=== PATIENT | female | born 1985 | race Caucasian/White ===

== ENCOUNTER 2016-03-26 05:10 | Inpatient (IN) | payer OTHER ==
--- NOTE | 2016-03-06 14:30 | GHP ---
[f rep st] PREOP HISTORY AND PHYSICAL Amended report DATE OF PLANNED PROCEDURE: 03/26/2016. PLANNED PROCEDURE: Repeat low transverse section. INDICATIONS: The patient is a 30-year-old, 4, para 0-1-2-1, who will be 39 weeks' gestation. She has a previous history of a previous low transverse section for vasa previa at 34 weeks' gestation. The patient began tremayne at 34 weeks, and had a done at that time. This has been uncomplicated. She has received 17-OHP injections for the history of labor. khalida's primary concern for the c section is her history of rapidly metabolizing pain/numbing medication (was able to move feet by end of c section and stood up an hour after her c section, and nausea. PAST MEDICAL HISTORY: Significant for infertility, endometriosis, hypothyroidism, migraines, and a history of metabolizing pain medication very quickly. MEDICATIONS: vitamins and iron. PAST SURGICAL HISTORY: Oral surgery, wisdom teeth extraction, laparoscopy, hysterosalpingogram, egg retrieval for IVF, section. ALLERGIES: Shellfish, and kane. No known drug allergies. SOCIAL HISTORY: The patient is . She denies tobacco, alcohol, or drug use. FAMILY MEDICAL HISTORY: Noncontributory. 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 Every 28 days, lasting 4-6 days. She is a 4, para 0-1-2-1. In 04/2010, she had a spontaneous miscarriage. In 2011, she had a chemical . In 07/2013, she had a primary low transverse section at 34 weeks for vasa previa, and was conceived by IVF. Initially, the was twins, which was spontaneously reduced to a riggs. Current was conceived spontaneously, and the patient denies any history of any abnormal Pap smears or sexually transmitted diseases. PHYSICAL EXAMINATION: VITAL SIGNS: Stable. GENERAL APPEARANCE: Alert and oriented x3. HEART: Rate is regularly regular. LUNGS: Clear to auscultation bilaterally. ABDOMEN: Gravid, nondistended, nontender. EXTREMITIES: No calf tenderness or edema. PELVIC: Deferred. heart tracing is category 1. LABORATORIES: Blood type A positive. Antibody screen negative. GBS pending. HBsAg negative. HIV negative. Her 50 g glucose was 84. ASSESSMENT AND PLAN: A 30-year-old, 4, para 0-1-2-1 with a history of a previous low transverse section declines trial of labor and is electing to proceed with a repeat low transverse section. She does decline a tubal ligation. /[id number]/MODL Add acc#, 03/26/16, kodak LOERA
[2016-03-26] MEDS ORDERED: CITRIC ACID/SODIUM CITRATE 30 ML UDCUP PO ONE (05:36)
[2016-03-26] MEDS ORDERED: ceFAZolin 2 GM/DEXTROSE 100 ML IV ONE (05:36)
[2016-03-26] MEDS ORDERED: LR 500 ML IV ONE (05:36)
[2016-03-26] MEDS ORDERED: LR 1,000 ML IV SCH (06:00)
[2016-03-26 06:01] LABS: ABSOLUTE IMMATURE GRANULOCYTES 0.28 10^3/uL (0.00-0.10); ADD DIFF? NO; ADD MORPH? NO; ADD SCAN? NO; ATYPICAL LYMPHOCYTE FLAG 0 (0-99); FRAGMENT RBC FLAG 0 (0-99); HEMATOCRIT 38.1 % (38.0-47.0); HEMOGLOBIN 12.7 g/dL (12.6-16.3); LEFT SHIFT FLG 20 (0-99); LIPEMIA HEMOLYSIS FLAG 80 (0-99); MEAN CELL HEMOGLOBIN 28.7 pg (27.9-34.1); MEAN CELL HEMOGLOBIN CONCENTR. 33.3 g/dL (32.4-36.7); MEAN PLATELET VOLUME 9.8 fL (8.7-11.7); PLATELET CLUMPS FLAG 10 (0-99); PLATELET COUNT 245 10^3/uL (150-400); RED BLOOD CELL COUNT 4.43 10^6/uL (4.18-5.33); RED CELL DISTRIBUTION WIDTH 13.5 % (11.5-15.2)
[2016-03-26] MEDS ORDERED: MISOPROSTOL 200 MCG TAB ONE (06:15)
[2016-03-26] MEDS ORDERED: TERBUTALINE SULFATE 1 MG/ML VIAL ONE (06:15)
[2016-03-26] MEDS ORDERED: AMMONIA AROMATIC 1 EACH AMP IH ONE (06:15)
[2016-03-26] MEDS ORDERED: OXYTOCIN 10 UNIT/ML VIAL ONE (06:15)
[2016-03-26] MEDS ORDERED: MEPERIDINE 25 MG/ML SYR IVP PRN (07:23)
[2016-03-26] MEDS ORDERED: NALOXONE HCL 0.4 MG/ML INJ IVP PRN ×2 (07:23→09:31)
[2016-03-26] MEDS ORDERED: ONDANSETRON 4 MG/2 ML VIAL IVP PRN ×2 (07:23→17:50)
[2016-03-26] MEDS ORDERED: fentaNYL 100 MCG/2 ML INJ IVP PRN (07:23)
[2016-03-26] MEDS ORDERED: PHENYLEPHRINE HCL 100 MCG/ML SYR IVP PRN (07:23)
--- NOTE | 2016-03-26 07:23 | PREANESOB ---
Obstetric Pre-Anesthesia Info - General Info Proposed Procedure: Repeat C/S NPO Start Time: 00:00 : 3 Para: 1 - Info Status: Full Term, [place] - Labor Status PIH: No Magnesium Sulfate in Use: No Section History: Repeat Indications for Current Section: Elective/Repeat Labor Epidural: No Anesthesia Allergies/Adverse Reactions: Allergy/AdvReac Type Severity Reaction Status Date / Time shellfish derived Allergy Unknown Unknown Verified 09/25/15 15:26 kane Allergy Verified 02/28/16 21:53 Home Medications: Medication Instructions Recorded Synthroid 75 mcg (RX) 01/12/14 09/25/15 Progesterone 09/25/15 Visit Medications: Generic Name Dose Route Start Last Admin Trade Name Freq PRN Reason Stop Dose Admin Lactated Ringer's 1,000 mls @ 125 mls/hr 03/26/16 06:00 Lr IV 09/22/16 05:59 CONT JAEL Discontinued Medications Generic Name Dose Route Start Last Admin Trade Name Freq PRN Reason Stop Dose Admin Ammonia (Aromatic Spirit) Confirm 03/26/16 06:15 Ammonia Aromatic Administered 03/26/16 06:16 Dose 1 each IH .STK-MED ONE Citric Acid/Sodium Citrate 30 ml 03/26/16 05:36 03/26/16 07:10 Bicitra PO 03/26/16 05:37 30 ml ONCALL ONE Administration Ephedrine Sulfate Confirm 03/26/16 06:15 Ephedrine Sulfate Administered 03/26/16 06:16 Dose 50 mg .ROUTE .STK-MED ONE Cefazolin Sodium/Dextrose 100 mls @ 200 mls/hr 03/26/16 05:36 03/26/16 07:09 Ancef 2 Gm (Premix) IV 03/26/16 06:05 100 mls ONCALL ONE Administration Lactated Ringer's 500 mls @ 0 mls/hr 03/26/16 05:36 03/26/16 06:45 Lr IV 03/26/16 05:37 500 mls ONCE ONE Administration As Directed Misoprostol Confirm 03/26/16 06:15 Cytotec Administered 03/26/16 06:16 Dose 1,000 mcg .ROUTE .STK-MED ONE Oxytocin Confirm 03/26/16 06:15 Pitocin Administered 03/26/16 06:16 Dose 30 unit .ROUTE .STK-MED ONE Terbutaline Sulfate Confirm 03/26/16 06:15 Brethine Administered 03/26/16 06:16 Dose 1 mg .ROUTE .STK-MED ONE - Focused Exam Height/Weight (Nursing): Height 165.1 cm Weight 68.039 kg Labs: 03/26/16 05:45 Patient ABO/Rh A POSITIVE 03/26/16 05:45
[2016-03-26] MEDS ORDERED: morphINE PF 5 MG/10 ML INJ ONE (07:35)
[2016-03-26] MEDS ORDERED: fentaNYL 100 MCG/2 ML INJ ONE (07:35)
--- NOTE | 2016-03-26 07:59 | OBPROG ---
OBG Progress Note Assessment/Plan: Assessment: wrong patient Plan: 03/26/16 07:55 03/26/16 08:00 Objective: 03/26/16 05:45 Patient ABO/Rh A POSITIVE 03/26/16 05:45 ICD10 Worksheet Patient Problems: Problems Problem Status Diagnosed Delivery by section of full-term infant Acute section term delivery Acute - ICD10 Problem Qualifiers (2) Delivery by section of full-term
[2016-03-26] MEDS ORDERED: ONDANSETRON 4 MG/2 ML VIAL ONE (08:32)
[2016-03-26] MEDS ORDERED: PHENYLEPHRINE HCL 100 MCG/ML SYR ONE ×3 (08:32→09:10)
[2016-03-26] MEDS ORDERED: OXYTOCIN 100 UNITS/10 ML VIAL ONE (08:32)
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
[2016-03-26] MEDS ORDERED: PROPOFOL 200 MG/20 ML VIAL ONE (09:01)
[2016-03-26] MEDS ORDERED: MAGNESIUM HYDROXIDE 30 ML UDCUP PO PRN (09:31)
[2016-03-26] MEDS ORDERED: POLYETHYLENE GLYCOL 3350 17 GM PKT PO PRN (09:31)
[2016-03-26] MEDS ORDERED: BISACODYL 10 MG SUPP PR PRN (09:31)
[2016-03-26] MEDS ORDERED: HYDROmorphONE/DILAUDID 6 MG/30 ML PCA IV PRN (09:31)
[2016-03-26] MEDS ORDERED: DOCUSATE SODIUM 100 MG CAP PO PRN (09:31)
[2016-03-26] MEDS ORDERED: LACTULOSE 20 GM/30 ML UDCUP PO PRN (09:31)
[2016-03-26] MEDS ORDERED: ACETAMINOPHEN 325 MG TAB PO PRN (09:31)
[2016-03-26] MEDS ORDERED: SIMETHICONE 80 MG TAB CHEW PO PRN (09:31)
--- NOTE | 2016-03-26 09:44 | OBPROC ---
- Delivery Pre-op Diagnoses: IUP 39 2/7 weeks, hx prior section, declines trial of labor, endometriosis Post-op Diagnoses: same plus face presentation Procedure: Repeat, Low Transverse, Other (Specify) (plus vaccum assist to get baby our) Surgeon: Asha Gupta Trial Lawyer: Roseanna Hendricks Anesthesiologist: Chalo Stewart Anesthesia: Spinal Complications: None Findings: defect in peritoneum and rectus muscle noted on entering the abdomen. left ovary and tube adherent to posterior wall of the uterus Specimen(s)/Path: Placenta EBL: 800 - Info Infant A Delivery Date: 03/26/16 Delivery Time: 08:28 Sex of : Female Score (1 Min): 2 Score (5 Min): 8 Score (10 Min): 9
--- NOTE | 2016-03-26 09:46 | POSTANESTH ---
Post Anesthetic Evaluation Cardiovascular Status: Normal, Stable, Similar to Pre-Op Cond Respiratory Status: Normal, Stable, Similar to Pre-op Cond. Level of Consciousness/Mental Status: Can Participate in Eval, Alert and Oriented Pain Control: Adequate, Prn Tx Ordered Nausea/Vomiting Control: Adequate, Prn Tx Ordered Complications Possibly Related to Anesthesia: None Noted
--- NOTE | 2016-03-26 10:24 | GOP ---
[f rep st] OPERATIVE REPORT DATE OF OPERATION: 03/26/2016 SURGEON: Asha Gupta DO REHANGER: Roseanna Hendricks CNM ANESTHESIA: Spinal. ANESTHESIOLOGIST: Chalo Stewart MD PREOPERATIVE DIAGNOSIS: 1. Intrauterine at 39 and 2/7 weeks gestation. 2. History of previous low transverse section. Declines trial of labor. 3. Endometriosis. POSTOPERATIVE DIAGNOSIS: 1. Intrauterine at 39 and 2/7 weeks gestation. 2. History of previous low transverse section. Declines trial of labor. 3. Baby in the face presentation. 4. Endometriosis. PROCEDURE PERFORMED: FINDINGS: 1. Viable 7 pound, 2 ounce female infant in the cephalic face presentation delivered at 8:28 a.m. 2. Intact placenta with 3-vessel cord. 3. Normal uterus, normal right ovary and tube. Left ovary and tube adherent to the posterior wall of the uterus. ESTIMATED BLOOD LOSS: 800 cc. INDICATIONS: The patient is a 31-year-old, 3, para 0-1-1-1, who was 39 and 2/7 weeks gestation. She has a history of previous low transverse section for vasa previa at 34 weeks. The patient does have a history of infertility secondary to endometriosis. Conceived this spontaneously. The patient declines trial of labor and plans for repeat low transverse section. She declines tubal ligation. Risks and benefits of the procedure were reviewed with the patient, and the patient was properly consented. DESCRIPTION OF PROCEDURE: Patient was taken to the operating room with intravenous fluids in place. She was then seated on the operating room table where spinal anesthesia was obtained. She was then repositioned into the dorsal supine position, and Venodynes were placed on her lower extremities. She was then prepped and draped in the normal sterile fashion. She had received the 2 g of Ancef preoperatively. A Ruiz catheter was then placed. Anesthesia was assessed and found to be adequate. A Pfannenstiel skin incision was then made 2 fingerbreadths above the pubic symphysis along the previous section scar. The incision was then carried through the underlying layer of fascia with the Bovie. The fascia was then nicked in the midline, and a fascial incision was extended laterally. The superior aspect of the fascial incision was then grasped with the Lizz's, tented up, and the underlying rectus muscle dissected off bluntly with the Bovie. Attention was then turned to the inferior aspect of the fascial incision , which in a similar fashion, was grasped with Lizz's, tented up, and the underlying rectus muscle dissected off bluntly with the Bovie. The rectus muscle was noted already to be with a defect in the rectus muscle and the peritoneum, leading directly to the uterus. A finger was then inserted to palpate for any adhesions. None were noted. The peritoneum and rectus muscle were then dissected superiorly and inferiorly. The bladder blade was then inserted. The vesicouterine peritoneum was identified, tented up, and entered sharply with the Metzenbaum scissors. The incision was extended laterally, and a bladder flap was created digitally. The bladder blade was then reinserted. The uterus was then incised in a low transverse fashion with a scalpel. The uterine incision was extended laterally. Membranes were artificially ruptured. A large amount of clear fluid was noted. The infant was noted to be in a somewhat face presentation and not engaged within the pelvis. The head was flexed, and because the head was not well engaged within the pelvis, a vacuum was applied to the 's head, and the infant was then delivered through the incision in the occiput posterior presentation. Cord was clamped x2 and cut. Cord blood and cord gases were obtained. The infant was handed off to awaiting nurse practitioner. Intact placenta with 3-vessel cord delivered without difficulty. Attempt to exteriorize the uterus was performed; however, the uterus was noted to be very firm, so it was left in place. The bladder blade was then reinserted. The uterus was cleared of all clots and debris, and an 0 Vicryl stitch was used to close the hysterotomy. A 2nd 0 Vicryl stitch was used to imbricate the uterine incision. One additional 0 Vicryl stitch was used to assist in bleeding in the lower uterine segment. Hemostasis was assured. The left round ligament was then grasped, and the uterus was rotated sideways. The left fallopian tube and ovary were adherent to the posterior wall of the uterus , but otherwise looked unremarkable. The same was performed on the right side, and the right ovary and tube were unremarkable. The hysterotomy remained hemostatic. Peritoneum was reapproximated with 3-0 Vicryl in a running fashion. An attempt was made to reapproximate the rectus muscle; however, patient was vomiting at the time and fear for tension on the rectus muscle caused me to not perform this portion of the surgery. The fascia was then closed with 0 Vicryl in a running fashion. Hemostasis was assured. Subcutaneous tissue was unremarkable and hemostatic. Subcuticular tissue was closed with 3-0 Vicryl in a running subcuticular fashion. Sponge, lap and needle counts were correct x2. Patient was transported to recovery room in stable condition. /[id number]/MODL MTDD
[2016-03-26] MEDS: KETOROLAC 30 MG/1 ML SDV IVP SCH ×3 (10:50→23:16)
[2016-03-26] MEDS: SENNOSIDES/DOCUSATE SODIUM TAB PO SCH (23:17)
[2016-03-27] MEDS: KETOROLAC 30 MG/1 ML SDV IVP SCH (05:28)
[2016-03-27] MEDS: HYDROCODONE/APAP 5/325 TAB PO PRN ×4 (08:42→21:32)
[2016-03-27] MEDS: SENNOSIDES/DOCUSATE SODIUM TAB PO SCH ×2 (08:42→20:02)
--- NOTE | 2016-03-27 11:12 | SOAPPROG ---
SOAP Progress Note Assessment/Plan: Assessment: POD 1 s/p RCS anemia Plan: Routine care, iron BID 03/27/16 11:12 Subjective: Pt doing ok. Pain managed well with Toradol but started [place] this am. Will do stool softeners also. Just got henderson out and hasn't voided. Baby has BF and nipples are sore. BF first baby 2 yrs. Bld is light. Pt has amb without probs. reg diet Objective: Vital Signs Temp Pulse Resp BP Pulse Ox 37.1 C 108 H 18 113/70 94 03/27/16 09:37 03/27/16 09:37 03/27/16 09:37 03/27/16 09:37 03/27/16 09:37 Laboratory Results 03/27/16 05:45 03/26/16 03/27/16 03/28/16 05:59 05:59 05:59 Intake Total 6320 1750 Output Total 2400 1125 Balance 3920 625 Physical Exam - Physical Exam General Appearance: WD/WN Abdomen: non-tender (approp post op tenderness), soft, other (bandage CDI, FF at umb) Pelvic Exam: vaginal bleeding (normal lochia) Extremities: non-tender, pedal edema (mild) Neuro/Psych: normal mood/affect ICD10 Worksheet Patient Problems: Problems Problem Status Diagnosed section term delivery Acute
[2016-03-27] MEDS: IRON POLYSAC/IRON HEME 28 MG TAB PO SCH ×2 (13:21→20:02)
[2016-03-27] MEDS: IBUPROFEN 600 MG TAB PO SCH ×2 (14:00→20:02)
[2016-03-28] MEDS: IBUPROFEN 600 MG TAB PO SCH ×4 (01:44→19:41)
[2016-03-28] MEDS: HYDROCODONE/APAP 5/325 TAB PO PRN ×6 (01:44→22:27)
[2016-03-28] MEDS ORDERED: LEVOTHYROXINE 150 MCG TAB PO SCH (06:00)
[2016-03-28] MEDS: IRON POLYSAC/IRON HEME 28 MG TAB PO SCH ×2 (08:13→09:37)
[2016-03-28] MEDS: SENNOSIDES/DOCUSATE SODIUM TAB PO SCH ×2 (08:13→23:37)
--- NOTE | 2016-03-28 09:48 | OBPROG ---
OBG Progress Note Assessment/Plan: Assessment: 31 y/o POD #2 s/p Rpt LTCS doing well. Plan: D/c home today with Rx Ibuprofen, [place], Bifera and Colace. Return to office Saturday for an incision check and reviewed activity precautions. Follow-up 2 and 6 weeks. 03/28/16 09:49 Subjective: Pt is doing well today. She has good pain control with po meds. No n/v, khanh reg diet and nursing is going well. She is ambulating and voiding and has min lochia. She has a sm BM yesterday and is taking Senna and feeling good. She feels ready to d/c home today with good family support. Objective: 03/27/16 05:45 Patient ABO/Rh A POSITIVE 03/26/16 05:45 Temp Pulse Resp BP Pulse Ox 36.6 C 105 H 18 129/86 H 95 03/28/16 08:40 03/28/16 08:40 03/28/16 08:40 03/28/16 08:40 03/28/16 08:40 Uterine Position/Fundal Height: Umbilicus -2 Uterine Tone: Firm - Physical Exam General Appearance: WD/WN, alert, no apparent distress Neck: non-tender, full range of motion, supple Respiratory: chest non-tender, lungs clear, normal breath sounds Cardiac/Chest: regular rate, rhythm Abdomen: normal bowel sounds, incision (c/d/i but slight erythema superior to her incision marked with pen) Extremities: swelling (ni), Jerel's sign (neg) ICD10 Worksheet Patient Problems: Problems Problem Status Diagnosed section term delivery Acute
[2016-03-28 17:12] LABS: % IMMATURE GRANULYOCYTES 2.1 % (0.0-1.1); ABSOLUTE IMMATURE GRANULOCYTES 0.27 10^3/uL (0.00-0.10); ADD DIFF? NO; ADD MORPH? NO; ADD SCAN? NO; ATYPICAL LYMPHOCYTE FLAG 0 (0-99); FRAGMENT RBC FLAG 0 (0-99); HEMATOCRIT 29.9 % (38.0-47.0); HEMOGLOBIN 9.7 g/dL (12.6-16.3); LEFT SHIFT FLG 20 (0-99); LIPEMIA HEMOLYSIS FLAG 80 (0-99); MEAN CELL HEMOGLOBIN 28.7 pg (27.9-34.1); MEAN CELL HEMOGLOBIN CONCENTR. 32.4 g/dL (32.4-36.7); MEAN CELL VOLUME 88.5 fL (81.5-99.8); MEAN PLATELET VOLUME 9.4 fL (8.7-11.7); PLATELET CLUMPS FLAG 10 (0-99); PLATELET COUNT 207 10^3/uL (150-400); RED BLOOD CELL COUNT 3.38 10^6/uL (4.18-5.33); RED CELL DISTRIBUTION WIDTH 13.7 % (11.5-15.2)
[2016-03-28 17:30] LABS: ALANINE AMINOTRANSFERASE 33 IU/L (9-52); ASPARTATE AMINOTRANSFERASE 24 IU/L (14-46); BILIRUBIN,TOTAL 0.2 mg/dL (0.1-1.4); BILIRUBIN-CONJUGATED 0.1 mg/dL (0.0-0.5); BILIRUBIN-UNCONJUGATED 0.1 mg/dL (0.0-1.1); CREATININE 0.6 mg/dL (0.6-1.0); GLOMERULAR FILTRATION RATE > 60; LACTATE DEHYDROGENASE 444 IU/L (313-618); URIC ACID 3.8 mg/dL (2.5-6.8)
--- NOTE | 2016-03-28 17:58 | SOAPPROG ---
SOAP Progress Note Assessment/Plan: Assessment: p2 pod# 2 s/p RLTCS abdominal cellulitis breast feeding Plan: routine post operative care augmentin 03/28/16 17:56 Subjective: patient is overall doing well. erythema above incision on abdomen noted. patient was hoping to go home and is tearful. discussed plan to start antibiotics as erythema has increased in size. patient agreeable. Objective: Vital Signs Temp Pulse Resp BP Pulse Ox 36.6 C 109 H 16 133/85 H 94 03/28/16 16:15 03/28/16 16:15 03/28/16 16:15 03/28/16 16:15 03/28/16 16:15 Laboratory Results 03/28/16 17:00 03/28/16 17:00 03/27/16 03/28/16 03/29/16 05:59 05:59 05:59 Intake Total 6320 2250 Output Total 2400 1605 Balance 3920 645 Physical Exam - Physical Exam General Appearance: WD/WN, alert, no apparent distress Respiratory: chest non-tender, lungs clear, normal breath sounds Cardiac/Chest: normal peripheral pulses, regular rate, rhythm Abdomen: normal bowel sounds, non-tender, soft Skin: normal color, warm/dry, other (errythema on abdomen) Extremities: normal range of motion, non-tender, normal inspection, normal capillary refill Neuro/Psych: no motor/sensory deficits, alert, normal mood/affect, oriented x 3 ICD10 Worksheet Patient Problems: Problems Problem Status Diagnosed section term delivery Acute
[2016-03-28] MEDS: AMOXICILLIN/CLAVULANATE POT 875/125 MG TAB PO SCH ×2 (18:42→22:25)
[2016-03-29] MEDS: HYDROCODONE/APAP 5/325 TAB PO PRN ×4 (01:48→14:11)
[2016-03-29] MEDS: IBUPROFEN 600 MG TAB PO SCH ×3 (01:49→14:11)
[2016-03-29 01:58] VITALS: O2SAT 94
[2016-03-29] MEDS ORDERED: LEVOTHYROXINE 75 MCG TAB PO SCH (06:00)
--- NOTE | 2016-03-29 08:10 | SOAPPROG ---
SOAP Progress Note Assessment/Plan: Assessment: p2 pod# 3 s/p RLTCS abdominal cellulitis - improving on augmentin breast feeding anemia Plan: routine post operative care augmentin iron discharge instructions 03/29/16 08:08 Subjective: patient is doing well. better than last night. bps stable. is less swollen. abdomen is less errythematous. breast feeding is going well. requesting apno and abdominal binder. passing gas. voiding without difficulty. denies headache and changes in vision. ready to go home Objective: Vital Signs Temp Pulse Resp BP Pulse Ox 36.3 C 88 18 121/83 H 94 03/29/16 01:57 03/29/16 01:57 03/29/16 01:57 03/29/16 01:57 03/29/16 01:57 Laboratory Results 03/28/16 17:00 03/28/16 17:00 03/28/16 03/29/16 03/30/16 05:59 05:59 05:59 Intake Total 2250 Output Total 1605 Balance 645 Physical Exam - Physical Exam General Appearance: WD/WN, alert, no apparent distress Respiratory: chest non-tender, lungs clear, normal breath sounds Cardiac/Chest: normal peripheral pulses, regular rate, rhythm Abdomen: normal bowel sounds, non-tender, soft, other (fundur firm and non tender) Skin: normal color, warm/dry, other (incision clean dry and intact. abdominal erythema improved ) Extremities: normal range of motion, non-tender, normal inspection, normal capillary refill Neuro/Psych: no motor/sensory deficits, alert, normal mood/affect, oriented x 3 ICD10 Worksheet Patient Problems: Problems Problem Status Diagnosed section term delivery Acute
[2016-03-29] MEDS: AMOXICILLIN/CLAVULANATE POT 875/125 MG TAB PO SCH (08:23)
[2016-03-29 09:18] VITALS: BP 123/87; PULSE 98; RESP 16; TEMP 99
[2016-03-29] MEDS: SENNOSIDES/DOCUSATE SODIUM TAB PO SCH (09:56)
[2016-03-29] MEDS: IRON POLYSAC/IRON HEME 28 MG TAB PO SCH (10:20)
== END 2016-03-29 15:10 | disposition home or self-care (01) | DRG 766 ==
LOC: FLD 05:10 → FOB 11:44
PROVIDERS: ADMIT Obstetrics & Gynecology; ATTEND Obstetrics & Gynecology
PROC: 10D00Z1 Extraction of Products of Conception, Low, Open Approach (ICD-10-PCS; principal; 2016-03-26)
DX: O34.211 Maternal care for low transverse scar from previous cesarean delivery (principal); O32.3XX0 Maternal care for face, brow and chin presentation, not applicable or unspecified; O86.0 Infection of obstetric surgical wound; O99.89 Other specified diseases and conditions complicating pregnancy, childbirth and the puerperium; N80.3 Endometriosis of pelvic peritoneum; Z3A.39 39 weeks gestation of pregnancy; Z37.0 Single live birth
CPT/HCPCS: J0690; J1170; J1885; J2274; J2370; J2405; J2590; J2704; J3010; J3105

== ENCOUNTER → 2017-11-26 | Outpatient (CLI) | payer OTHER | LOC: FIMAGING 12:51 | PROVIDERS: ATTEND Obstetrics & Gynecology | DX: O09.292 Supervision of pregnancy with other poor reproductive or obstetric history, second trimester (principal); Z3A.19 19 weeks gestation of pregnancy ==

== ENCOUNTER 2018-04-11 05:40 | Inpatient (IN) | payer OTHER ==
--- NOTE | 2018-04-04 09:29 | GHP ---
DATE OF ADMISSION: 04/11/2018 PLANNED PROCEDURE: Repeat section. INDICATIONS: Patient is a 33-year-old, 4, para 2-0-1-2, who will be 39 weeks gestation. She has a history of previous low transverse section x2 and plans a repeat section. S he is 95% sure her family status is complete, but not 100%, so she will not have a bilateral salpinge ctomy. Her will have a vasectomy at the time that they are done. The patient's estimated da te of confinement is 04/18/2018, dated by an uncertain last menstrual period, consistent with a 7-wee k ultrasound. The patient initiated care with [facility] in the 1st trimester. H er was complicated by previa at 12 weeks, which resolved by her 20-week ultrasound. She erazo s a single umbilical artery and a choroid plexus cyst. Normal anti-PT was done. She declined amnio. She had serial growth ultrasounds in , which showed appropriate growth. MEDICAL HISTORY: Significant for anxiety, which is stable on Zoloft. History of depressi on. Hypothyroidism. History of infertility. History of migraine headaches. MEDICATIONS: Synthroid 75 mcg 6 days a week, 150 mcg 1 day a week; vitamins; Zoloft 50 mg. SURGICAL HISTORY: section x2. [place] teeth extraction. History of salpingogram. 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 ALLERGIES: Shellfish and Kyleigh. No known drug allergies. SOCIAL HISTORY: Patient is . She lives with her and their 2 daughters. She denies t obacco, alcohol, or drug use. FAMILY MEDICAL HISTORY: Noncontributory. 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 Periods have been overall regular. She is a 5, para 1-1-2 -2. In 2010, she had a chemical . In 2011, she had a spontaneous after IVF in 2013. She had a primary low transverse section at 34 weeks gestation for vasa previa. Dmitriy alberts was initially a twin and had a spontaneous demise at 9 weeks. This was conceived by IVF. She went into labor at 34 weeks and had an emergency for the vasa previa of a 5 pounds female . In 2016, she had a repeat section, placenta previa at 39 weeks ges tation of a 7 pounds 2 ounce female infant. Current has been uncomplicated with the except ion of the growth ultrasounds for single umbilical artery. The patient denies any history of any abn ormal Pap smears or sexually transmitted diseases. REVIEW OF SYSTEMS: A 10-point review of systems is negative. Positive movement. No loss of f luid. No vaginal bleeding. She denies any headache or changes in vision. PHYSICAL EXAMINATION: VITAL SIGNS: Stable. GENERAL APPEARANCE: Alert and oriented x3. HEART: Ra te is regular. LUNGS: Clear to auscultation bilaterally. ABDOMEN: Gravid, nondistended, nontender . EXTREMITIES: Reveal no calf tenderness or edema. PELVIC: Cervical exam was declined. LABS: Blood type A positive. Antibody screen negative. Rubella immune. GBS positive. HB sAg negative. HIV negative. Her 50 g glucose was 112. ASSESSMENT AND PLAN: A 33-year-old, 5, para 1-1-2-2, who will be 39 weeks gestation for a sc heduled repeat section. She declines tubal ligation. Thank you indication. /[id number]/MODL
[2018-04-11] MEDS ORDERED: LR 1,000 ML IV SCH (06:33)
[2018-04-11 06:56] LABS: PLATELET COUNT 207 10^3/uL (150-400)
[2018-04-11] MEDS ORDERED: ceFAZolin 2 GM/DEXTROSE 100 ML IV ONE (07:26)
[2018-04-11] MEDS ORDERED: PROPOFOL 200 MG/20 ML VIAL ONE (07:27)
[2018-04-11] MEDS ORDERED: morphINE PF 5 MG/10 ML INJ ONE (07:27)
[2018-04-11] MEDS ORDERED: BUPIVACAINE/DEXTROSE 7.5MG/ML 2 ML SPINAL AMP SP ONE (07:32)
[2018-04-11] MEDS ORDERED: ONDANSETRON 4 MG/2 ML VIAL ONE (07:34)
[2018-04-11] MEDS ORDERED: DEXAMETHASONE 4 MG/ML VIAL ONE (07:34)
[2018-04-11] MEDS ORDERED: METOCLOPRAMIDE 10 MG/2 ML VIAL ONE (07:35)
[2018-04-11] MEDS ORDERED: PHENYLEPHRINE HCL 100 MCG/ML SYR IVP PRN (07:39)
[2018-04-11] MEDS ORDERED: OXYCODONE/APAP 5/325 TAB PO PRN (07:39)
[2018-04-11] MEDS ORDERED: NALOXONE HCL 0.4 MG/ML INJ IVP PRN ×2 (07:39)
[2018-04-11] MEDS ORDERED: HYDROmorphONE/DILAUDID 1 MG/ML INJ IVP PRN (07:39)
[2018-04-11] MEDS ORDERED: ONDANSETRON 4 MG/2 ML VIAL IVP PRN ×2 (07:39)
[2018-04-11] MEDS ORDERED: fentaNYL 100 MCG/2 ML INJ IVP PRN (07:39)
--- NOTE | 2018-04-11 07:44 | PREANESOB ---
Obstetric Pre-Anesthesia Info - General Info Proposed Procedure: Repeat NPO Start Time: 08:00 : 4 Para: 2 NANCY: 04/18/18 Gestational Age: 39 week(s) and 0 day(s) - Info Status: Full Term - Labor Status Section History: Repeat Labor Epidural: No Anesthesia Allergies/Adverse Reactions: Allergy/AdvReac Type Severity Reaction Status Date / Time kane Allergy Intermediate Verified 04/11/18 06:38 shellfish derived Allergy Unknown Unknown Verified 04/11/18 06:38 Home Medications: Medication Instructions Recorded Synthroid 75 mcg (RX) 01/12/14 09/25/15 Progesterone 09/25/15 Hydrocodone/APAP 5/325 [Charmco 1 - 2 tab PO Q4HRS PRN #20 tab 03/28/16 5/325 (*)] Ibuprofen [Motrin (*)] 600 mg PO Q6H #30 tab 03/28/16 Iron Polysacch/Iron Heme Polyp 28 mg PO BID #60 tab 03/28/16 [Bifera] Amoxicillin/Clavulanate Pot 875 mg PO BID #14 tab 03/29/16 [Augmentin 875 MG TAB (*)] Visit Medications: Generic Name Dose Route Start Last Admin Trade Name Freq PRN Reason Stop Dose Admin Lactated Ringer's 1,000 mls @ 125 mls/hr 04/11/18 06:33 Lr IV 10/08/18 06:32 CONT JAEL Cefazolin Sodium/Dextrose 100 mls @ 200 mls/hr 04/11/18 07:26 Ancef IV 04/11/18 07:55 ONCE ONE Protocol Discontinued Medications Generic Name Dose Route Start Last Admin Trade Name Freq PRN Reason Stop Dose Admin Bupivacaine HCl/Dextrose Confirm 04/11/18 07:32 Marcaine Spinal Administered 04/11/18 07:33 Dose 2 ml SP .STK-MED ONE Dexamethasone Confirm 04/11/18 07:34 Decadron Injection Administered 04/11/18 07:35 Dose 4 mg .ROUTE .STK-MED ONE Metoclopramide HCl Confirm 04/11/18 07:35 Reglan Injection Administered 04/11/18 07:36 Dose 10 mg .ROUTE .STK-MED ONE Morphine Sulfate Confirm 04/11/18 07:27 Morphine Pf 5 Mg/10 Ml Administered 04/11/18 07:28 Dose 5 mg .ROUTE .STK-MED ONE Ondansetron HCl Confirm 04/11/18 07:34 Zofran Administered 04/11/18 07:35 Dose 4 mg .ROUTE .STK-MED ONE Propofol Confirm 04/11/18 07:27 Diprivan Administered 04/11/18 07:28 Dose 200 mg .ROUTE .STK-MED ONE - Vital Signs Latest Vital Signs (Nursing): Temp Pulse Resp BP Pulse Ox 36.8 C 90 16 128/88 H 95 04/11/18 06:27 04/11/18 06:27 04/11/18 06:27 04/11/18 06:27 04/11/18 06:27 Height/Weight (Nursing): Height 154.94 cm Weight 81.647 kg - Focused Exam Neck exam: FROM Mallampati Score: Class 2 Mouth exam: normal dental/mouth exam Pulmonary: clear to auscultation Cardiovascular: regular rate and rhythym Labs: 04/11/18 06:15 Patient ABO/Rh A POSITIVE 04/11/18 06:15 - Plan Anesthetic Plan: Spinal Consent Signed and on Chart: Yes
[2018-04-11] MEDS ORDERED: CHLORHEXIDINE GLUC HIBICLENS 118 ML BTL TP ONE (08:08)
[2018-04-11] MEDS ORDERED: OXYTOCIN 100 UNITS/10 ML VIAL ONE (08:15)
[2018-04-11] MEDS ORDERED: PROPOFOL/EMULSION 500 MG/50 ML BOTTLE IV ONE (08:20)
--- NOTE | 2018-04-11 09:20 | POSTANESTH ---
Post Anesthetic Evaluation Cardiovascular Status: Normal, Stable Respiratory Status: Normal, Stable Level of Consciousness/Mental Status: Can Participate in Eval, Alert and Oriented Pain Control: Adequate, Prn Tx Ordered Nausea/Vomiting Control: Adequate, Prn Tx Ordered Complications Possibly Related to Anesthesia: None Noted
[2018-04-11] MEDS ORDERED: BISACODYL 10 MG SUPP PR PRN (09:22)
[2018-04-11] MEDS ORDERED: POLYETHYLENE GLYCOL 3350 17 GM PKT PO PRN (09:22)
[2018-04-11] MEDS ORDERED: SIMETHICONE 80 MG TAB CHEW PO PRN (09:22)
[2018-04-11] MEDS ORDERED: HYDROCODONE/APAP 5/325 TAB PO PRN (09:22)
[2018-04-11] MEDS ORDERED: MAGNESIUM HYDROXIDE 30 ML UDCUP PO PRN (09:22)
[2018-04-11] MEDS ORDERED: LACTULOSE 20 GM/30 ML UDCUP PO PRN (09:22)
--- NOTE | 2018-04-11 09:29 | OBDEL ---
Info Type: Repeat Presentation at Delivery: Vertex L&D Analgesia/Anesthesia Type: Spinal GBS+: No - Hospital Course Intrapartum: 04/11/18 09:26 patient became very anxious after the spinal was placed. was given propofol to help. Indications for Delivery: Elective Operative Report - Delivery Pre-op Diagnoses: iup at 39 weeks, history prior c section x 2 Post-op Diagnoses: same as preop plus nuchal cord x 1 and true knot in the cord History of Prior Section: Yes Number of Prior Sections: 2 Nulliparous Prior to Delivery: No Indications for Prior Section: Elective/Repeat, Other (Specify) (vasa previa) Indications for Current Section: Elective/Repeat Procedure: Scheduled, Low Transverse Surgeon: Asha Gupta Cradle Placer: Jaci Murphy Anesthesiologist: Иван Preston Complications: Nucal Cord (plus true knot in the cord) EBL: 700 Data NANCY: 04/18/18 Gestational Age: 39 week(s) and 0 day(s) [place] Delivery Date: 04/11/18 Delivery Time: 08:33 Sex of : Male Score (1 Min): 8 Score (5 Min): 8 ICD10 Worksheet Patient Problems: Problems Problem Status Onset section term delivery Acute
[2018-04-11] MEDS ORDERED: KETOROLAC 30 MG/1 ML SDV ONE (09:57)
[2018-04-11] MEDS: KETOROLAC 30 MG/1 ML SDV IVP SCH ×3 (10:00→22:41)
--- NOTE | 2018-04-11 11:13 | GOP ---
DATE OF OPERATION: 04/11/2018 SURGEON: Asha Gupta DO RADIO ANTENNA INSTALLER: Jaci Murphy. ANESTHESIA: Spinal with Duramorph. ANESTHESIOLOGIST: Иван Preston. PREOPERATIVE DIAGNOSIS: Intrauterine at 39 weeks' gestation, history of previous section x2. POSTOPERATIVE DIAGNOSIS: Intrauterine at 39 weeks' gestation, history of previous section x2, nuchal cord x1, and true knot in cord. PROCEDURE PERFORMED: Repeat low transverse section. FINDINGS: 1. Viable male in a cephalic presentation, delivered at 8:33 a.m. Apgars were 8 and 8. 2. Intact placenta with three-vessel cord. 3. Normal ovaries, uterus and tubes. The uterus was not able to be exteriorized due to suspected ad hesions posteriorly. SPECIMENS: Cord blood. ESTIMATED BLOOD LOSS: 700 cc. INDICATIONS: Patient is a 33-year-old, 4, para 1-1-1-2, who is 39 weeks' gestation. She has a history of a previous section x2, who presents today for a scheduled repeat low transvers e section. Risks and benefits have been reviewed with the patient. The patient declines tu bal ligation at this surgery and her will have a vasectomy when their family status is comple te. The risks and benefits have been reviewed with the patient. The patient has been properly conse nted. DESCRIPTION OF PROCEDURE: Patient was taken to the operating room with intravenous fluids in place. She was then seated on the operating room table where spinal anesthesia was obtained. She was then repositioned into the dorsal supine position with a leftward tilt. A Ruiz catheter was then placed. Venodyne's were placed on her lower extremities. She was then prepped and draped in a normal steri le fashion. Anesthesia was assessed and found to be adequate. Patient was having significant amount of anxiety due to body sensations, so she was given propofol to decrease her anxiety. Patient was m uch more relaxed following that. After anesthesia was assessed and found to be adequate, a Pfannenst iel skin incision was then made 2 fingerbreadths above the pubic symphysis. The incision was then ca rried through the underlying layer of fascia with the Bovie. The fascia was then nicked in the midli ne and the fascial incision was extended laterally. The superior aspect of the fascial incision was then grasped with a Lizz, tented up, and the underlying rectus muscle dissected off bluntly and wit h the Bovie. Attention was then turned to the inferior aspect of the fascial incision, which in a si milar fashion was grasped with a Lizz, tented up, and the underlying rectus muscle dissected bluntl y with the Bovie. The rectus muscle was then in the midline. The peritoneum was identifie d, tented up, and entered sharply with the Metzenbaum scissors. The incision was extended superiorly and inferiorly with excellent visualization of the bladder. The bladder blade was then inserted. T he lower uterine segment was noted to be very thin, so not much of a bladder flap was able to be crea alberto. Uterine incision was then made and a large amount of clear fluid was noted. The infant's head was noted to not be well engaged within the pelvis. The 's head was then delivered through the incision. Nuchal cord x1 was reduced and a true knot in the cord was noted. The remainder of the i nfant delivered without difficulty. Delayed cord clamping x1 minute was performed. The cord was the n clamped x2 and cut and the was handed off to waiting nurse practitioner. Cord bloo d was collected. Intact placenta with 3-vessel cord then delivered without difficulty. We were not able to exteriorize the uterus, so the uterus was then cleared of all clots and debris. The Mathew O ring was then inserted to improve visualization. The hysterotomy was closed with 0 Vicryl in a runn ing locked fashion. A 2nd 0 Vicryl stitch was used in interrupted [id number] fashion to achieve hemostasis. Overall, hemostasis was assured. The gutters were cleared of all clots and debris. Th e uterus was rotated and the ovaries and tubes were noted to be normal bilaterally. The peritoneum i s reapproximated with 3-0 Vicryl in a running fashion. The rectus muscle naturally reapproximated so it was not sutured. The fascia was then closed with 0 Vicryl in a running fashion. Wen's fascia was reapproximated with 2-0 Vicryl in a running fashion. Subcuticular fascia was reapproximated wit h 3-0 Vicryl in a running fashion. Sponge, lap, needle count correct x2. The patient was transferre d to recovery room in stable condition. /[id number]/MODL
[2018-04-11] MEDS: oxyCODONE IR 5 MG TAB PO PRN ×4 (11:30→23:35)
[2018-04-11] MEDS: ACETAMINOPHEN 325 MG TAB PO SCH ×3 (11:30→22:42)
[2018-04-11] MEDS: IBUPROFEN 600 MG TAB PO SCH ×2 (16:49→23:19)
--- NOTE | 2018-04-11 18:22 | OBPP ---
Progress Note Assessment/Plan: Assessment: pod# 0 s/p RLTCS breast feeding hct in am Plan: 04/11/18 18:18 Subjective/ Course: 04/11/18 18:19 patient is doing well. pain is well controlled. tolerating diet. normal lochia. denies headache and changes in vision. breast feeding is going well very happy with experience. Objective: 04/11/18 06:15 Patient ABO/Rh A POSITIVE 04/11/18 06:15 Temp Pulse Resp BP Pulse Ox 36.9 C 78 18 108/66 98 04/11/18 14:15 04/11/18 14:15 04/11/18 14:15 04/11/18 14:15 04/11/18 14:15 Physical Exam - Physical Exam Neck: non-tender, full range of motion Respiratory: chest non-tender, lungs clear, normal breath sounds Cardiac/Chest: normal peripheral pulses, regular rate, rhythm Abdomen: normal bowel sounds, non-tender, other (fundus and firm and non tender) Extremities: normal range of motion, non-tender, normal inspection, normal capillary refill Skin: normal color, warm/dry Neuro/Psych: no motor/sensory deficits, alert, normal mood/affect, oriented x 3
[2018-04-11] MEDS: SENNOSIDES/DOCUSATE SODIUM TAB PO SCH (19:26)
[2018-04-11] MEDS: SERTRALINE HCL 50 MG TAB PO SCH (21:05)
[2018-04-12] MEDS: oxyCODONE IR 5 MG TAB PO PRN ×7 (03:23→23:56)
[2018-04-12] MEDS ORDERED: KETOROLAC 30 MG/1 ML SDV IVP SCH (05:45)
[2018-04-12] MEDS: LEVOTHYROXINE 75 MCG TAB PO SCH (05:51)
[2018-04-12] MEDS: ACETAMINOPHEN 325 MG TAB PO SCH ×4 (05:51→23:55)
[2018-04-12] MEDS ORDERED: SERTRALINE HCL 50 MG TAB PO SCH (09:00)
[2018-04-12] MEDS: SENNOSIDES/DOCUSATE SODIUM TAB PO SCH ×2 (09:49→23:04)
[2018-04-12] MEDS: IBUPROFEN 600 MG TAB PO SCH ×4 (11:53→23:56)
--- NOTE | 2018-04-12 12:29 | POSTANESTH ---
Post Anesthetic Evaluation Cardiovascular Status: Normal, Stable, Similar to Pre-Op Cond Respiratory Status: Normal, Stable, Similar to Pre-op Cond. Level of Consciousness/Mental Status: Can Participate in Eval, Alert and Oriented Pain Control: Adequate, Prn Tx Ordered Nausea/Vomiting Control: Adequate, Prn Tx Ordered Complications Possibly Related to Anesthesia: None Noted Notes: Pt seen and examined. Block has completely resolved. Back site c/d/i, no e/e/ e. Able to ambulate. Reports some pruritis (mild), denies MILLARD, N/V.
--- NOTE | 2018-04-12 12:34 | OBPP ---
Progress Note Assessment/Plan: Assessment: 33 POD#1 s/p R-C/s (3rd one) - doing well. Urinary catheter out and voiding spontaneously. Plan: Continue routine post op cares. Encourage ambulation. Jaci Murphy MD, FACOG 04/12/18 12:30 Subjective/ Course: 04/11/18 18:19 patient is doing well. pain is well controlled. tolerating diet. normal lochia. denies headache and changes in vision. breast feeding is going well very happy with experience. 04/12/18 12:32 Doing well. Charleen reg diet. Has voided spontaneously after urinary catheter removed this morning. Normal lochia. going well. Pain mostly well controlled with po meds, but got behind on meds this morning so still trying to catch up and get more comfortable again. Objective: 04/12/18 06:00 Patient ABO/Rh A POSITIVE 04/11/18 06:15 Temp Pulse Resp BP Pulse Ox 36.8 C 81 18 112/74 94 04/12/18 08:00 04/12/18 08:00 04/12/18 08:00 04/12/18 08:00 04/12/18 08:00 Intake and Output 04/11/18 04/12/18 04/12/18 17:59 05:59 17:59 Intake Total 1350 2000 Output Total 1210 2300 550 Balance 140 -300 -550 Weight 81.647 kg Intake: Oral (ml) 1050 2000 IV Intake (ml) 300 Output: Urine (ml) 610 2300 550 Catheter 610 2300 Toilet 550 Estimated Blood Loss (ml) 600 Other: Intake Quantity Yes Yes Sufficient gen - pleasant, NAD CV - RRR chest - CTAB abd - soft, + BS, inc - c/d/i no dressing. An area of purplish ecchymosis about 10 x8 cm cephalad to incision on R side, mildly tender. fundus firm at u-1 ext - 1+ pitting edema, BLE, neg Jerel's Uterine Position/Fundal Height: Umbilicus -1 Uterine Tone: Firm
[2018-04-12] MEDS: FERRO-SEQUELS 65 MG TAB.ER PO SCH ×2 (14:18→22:11)
[2018-04-12] MEDS: SERTRALINE HCL 50 MG TAB PO SCH (22:11)
[2018-04-13] MEDS: oxyCODONE IR 5 MG TAB PO PRN ×5 (04:02→21:31)
[2018-04-13] MEDS: LEVOTHYROXINE 75 MCG TAB PO SCH (05:59)
[2018-04-13] MEDS: ACETAMINOPHEN 325 MG TAB PO SCH ×3 (05:59→18:32)
[2018-04-13] MEDS: IBUPROFEN 600 MG TAB PO SCH ×3 (06:00→18:32)
[2018-04-13] MEDS: FERRO-SEQUELS 65 MG TAB.ER PO SCH ×3 (08:27→21:51)
[2018-04-13] MEDS: SENNOSIDES/DOCUSATE SODIUM TAB PO SCH ×2 (08:28→21:32)
--- NOTE | 2018-04-13 10:09 | OBPP ---
Progress Note Assessment/Plan: Assessment: pod# 2 s/p RLTCS breast feeding anemia rh Pos/ rubella immune Plan: 04/11/18 18:18 04/13/18 10:07 Subjective/ Course: 04/11/18 18:19 patient is doing well. pain is well controlled. tolerating diet. normal lochia. denies headache and changes in vision. breast feeding is going well very happy with experience. 04/12/18 12:32 Doing well. Charleen reg diet. Has voided spontaneously after urinary catheter removed this morning. Normal lochia. going well. Pain mostly well controlled with po meds, but got behind on meds this morning so still trying to catch up and get more comfortable again. 04/13/18 10:07 patient is doing well. having some pain management issues. has increased to two oxy ir and tylenol and ibuprofen. denies headache and changes in vision. breast feeding is going well. ambulating. passing gas. voiding without difficulty. Objective: 04/12/18 06:00 Patient ABO/Rh A POSITIVE 04/11/18 06:15 Temp Pulse Resp BP Pulse Ox 36.1 C 83 18 122/83 H 95 04/13/18 04:00 04/13/18 04:00 04/13/18 04:00 04/13/18 04:00 04/13/18 04:00 Physical Exam - Physical Exam Neck: non-tender, full range of motion Respiratory: chest non-tender, lungs clear, normal breath sounds Cardiac/Chest: normal peripheral pulses, regular rate, rhythm Abdomen: normal bowel sounds, non-tender, other (fundus firm and non tender) Extremities: normal range of motion, non-tender, normal inspection, normal capillary refill Skin: normal color, warm/dry, other (incision clean dry and intact) Neuro/Psych: no motor/sensory deficits, alert, normal mood/affect, oriented x 3
[2018-04-13] MEDS: SERTRALINE HCL 50 MG TAB PO SCH (21:32)
[2018-04-14] MEDS: ACETAMINOPHEN 325 MG TAB PO SCH ×4 (00:34→18:21)
[2018-04-14] MEDS: IBUPROFEN 600 MG TAB PO SCH ×4 (00:34→18:21)
[2018-04-14] MEDS: oxyCODONE IR 5 MG TAB PO PRN ×6 (01:34→22:20)
[2018-04-14] MEDS: KETOROLAC 30 MG/1 ML SDV IVP SCH (05:31)
[2018-04-14] MEDS: LEVOTHYROXINE 75 MCG TAB PO SCH (06:24)
[2018-04-14] MEDS: FERRO-SEQUELS 65 MG TAB.ER PO SCH ×2 (10:00→20:47)
[2018-04-14] MEDS: SENNOSIDES/DOCUSATE SODIUM TAB PO SCH ×2 (10:00→20:47)
--- NOTE | 2018-04-14 12:49 | OBPP ---
Progress Note Assessment/Plan: Assessment: POD3 s/p RCS. Doing well - home tomorrow. On PO iron. Rh pos, Rubella immune. JM Subjective/ Course: 04/11/18 18:19 patient is doing well. pain is well controlled. tolerating diet. normal lochia. denies headache and changes in vision. breast feeding is going well very happy with experience. 04/12/18 12:32 Doing well. Charleen reg diet. Has voided spontaneously after urinary catheter removed this morning. Normal lochia. going well. Pain mostly well controlled with po meds, but got behind on meds this morning so still trying to catch up and get more comfortable again. 04/13/18 10:07 patient is doing well. having some pain management issues. has increased to two oxy ir and tylenol and ibuprofen. denies headache and changes in vision. breast feeding is going well. ambulating. passing gas. voiding without difficulty. 04/14/18 15:25 Doing very well this AM - frustrating night with BF and issues with pain control. Overall feels like we're doing okay with meds. Thinks she would like to stay until tomorrow. Objective: 04/12/18 06:00 Patient ABO/Rh A POSITIVE 04/11/18 06:15 Temp Pulse Resp BP Pulse Ox 36.4 C 69 18 132/86 H 95 04/14/18 08:10 04/14/18 08:10 04/14/18 08:10 04/14/18 08:10 04/14/18 08:10 Uterine Position/Fundal Height: At Umbilicus Uterine Tone: Firm Physical Exam - Physical Exam Abdomen: incision (CDI. Sutures. Bruising on upper and lower aspects )
[2018-04-14] MEDS: SERTRALINE HCL 50 MG TAB PO SCH (22:20)
[2018-04-15] MEDS: ACETAMINOPHEN 325 MG TAB PO SCH ×3 (01:20→13:16)
[2018-04-15] MEDS: IBUPROFEN 600 MG TAB PO SCH ×4 (01:20→13:16)
[2018-04-15] MEDS: oxyCODONE IR 5 MG TAB PO PRN ×4 (02:10→14:11)
[2018-04-15] MEDS: LEVOTHYROXINE 75 MCG TAB PO SCH (06:29)
[2018-04-15] MEDS: FERRO-SEQUELS 65 MG TAB.ER PO SCH (07:32)
[2018-04-15] MEDS: SENNOSIDES/DOCUSATE SODIUM TAB PO SCH (10:54)
[2018-04-15 11:03] VITALS: BP 126/82
--- NOTE | 2018-04-15 11:16 | OBPP ---
Progress Note Assessment/Plan: Assessment: 33 y/o POD #4 s/p Rpt LTCS doing well Plan: D/c home today with Rx Ibuprofen, Tylenol and Oxycodone, and iron. Follow-up @ [facility] 2, 4 and 6 weeks. Call with fever, heavy vaginal bleeding or s/sx's of mastitis. 04/15/18 11:18 Subjective/ Course: 04/11/18 18:19 patient is doing well. pain is well controlled. tolerating diet. normal lochia. denies headache and changes in vision. breast feeding is going well very happy with experience. 04/12/18 12:32 Doing well. Charleen reg diet. Has voided spontaneously after urinary catheter removed this morning. Normal lochia. going well. Pain mostly well controlled with po meds, but got behind on meds this morning so still trying to catch up and get more comfortable again. 04/13/18 10:07 patient is doing well. having some pain management issues. has increased to two oxy ir and tylenol and ibuprofen. denies headache and changes in vision. breast feeding is going well. ambulating. passing gas. voiding without difficulty. 04/14/18 15:25 Doing very well this AM - frustrating night with BF and issues with pain control. Overall feels like we're doing okay with meds. Thinks she would like to stay until tomorrow. 04/15/18 11:13 Pt is doing well this am. She is ambulating, voiding well, had min lochia and + BM today. Her milk is coming in and nursing is going much better. She is taking Ibuprofen, tylenol and Oxy and has good pain control. She is ready to d/ c home. Objective: 04/12/18 06:00 Patient ABO/Rh A POSITIVE 04/11/18 06:15 Temp Pulse Resp BP Pulse Ox 36.2 C 81 16 126/82 H 96 04/15/18 08:00 04/15/18 08:00 04/15/18 08:00 04/15/18 09:00 04/15/18 08:00 Uterine Position/Fundal Height: Umbilicus -2 Uterine Tone: Firm Physical Exam - Physical Exam General Appearance: alert, no apparent distress Neck: non-tender, full range of motion, supple Respiratory: chest non-tender, lungs clear, normal breath sounds Cardiac/Chest: regular rate, rhythm Abdomen: normal bowel sounds, incision (c/d/i) Extremities: swelling (no), Jerel's sign (neg)
--- NOTE | 2018-04-15 11:26 | OBGCSDC ---
General Delivery Information - General Info : 4 Para: 3 Abortions: 1 Type: Repeat L&D Analgesia/Anesthesia Type: Spinal Admission Date: 04/11/18 Labs: Patient ABO/Rh A POSITIVE 04/11/18 06:15 Hct 31.7 % (38.0-47.0) L 04/12/18 06:00 - Hospital Course Intrapartum: 04/11/18 09:26 patient became very anxious after the spinal was placed. was given propofol to help. : 04/11/18 18:19 patient is doing well. pain is well controlled. tolerating diet. normal lochia. denies headache and changes in vision. breast feeding is going well very happy with experience. 04/12/18 12:32 Doing well. Charleen reg diet. Has voided spontaneously after urinary catheter removed this morning. Normal lochia. going well. Pain mostly well controlled with po meds, but got behind on meds this morning so still trying to catch up and get more comfortable again. 04/13/18 10:07 patient is doing well. having some pain management issues. has increased to two oxy ir and tylenol and ibuprofen. denies headache and changes in vision. breast feeding is going well. ambulating. passing gas. voiding without difficulty. 04/14/18 15:25 Doing very well this AM - frustrating night with BF and issues with pain control. Overall feels like we're doing okay with meds. Thinks she would like to stay until tomorrow. 04/15/18 11:13 Pt is doing well this am. She is ambulating, voiding well, had min lochia and + BM today. Her milk is coming in and nursing is going much better. She is taking Ibuprofen, tylenol and Oxy and has good pain control. She is ready to d/ c home. - Delivery Providers Surgeon: Asha Gupta [employer]: Jaci Murphy Anesthesiologist: Иван Preston - Delivery Number of Prior Sections: 2 Indications for Current Section: Elective/Repeat Surgical Procedures: Scheduled, Low Transverse Intra-op Complications: Nucal Cord (plus true knot in the cord) EBL: 700 [place] Data NANCY: 04/18/18 Gestational Age: 39 week(s) and 4 day(s) [place] Delivery Date: 01/25/19 Delivery Time: 08:33 Sex of Infant: Male Weight (gm): 0 g Score (1 Min): 8 Score (5 Min): 9 Discharge Information - Discharge Information Prescriptions: oxyCODONE IR [Oxycodone Ir (*)] 5 - 10 mg PO Q4HRS PRN #30 tab PRN Reason: Pain, Severe Able To Take Po Ibuprofen [Motrin (*)] 600 mg PO Q6H #30 tab Iron/Vit C/Docusate [Francisco Javier-Sequels 65 mg (*)] 1 each PO BID #60 tab.er Condition: Good Instruction/Follow Up: Two Weeks, Four Weeks, Six Weeks
== END 2018-04-15 15:45 | disposition home or self-care (01) | DRG 788 ==
LOC: FLD 05:40 → FOB 11:13
PROVIDERS: ADMIT Obstetrics & Gynecology; ATTEND Obstetrics & Gynecology
PROC: 10D00Z1 Extraction of Products of Conception, Low, Open Approach (ICD-10-PCS; principal; 2018-04-11)
DX: O34.211 Maternal care for low transverse scar from previous cesarean delivery (principal); Z37.0 Single live birth; Z3A.39 39 weeks gestation of pregnancy; O69.82X0 Labor and delivery complicated by other cord entanglement, without compression, not applicable or unspecified
CPT/HCPCS: J0690; J1100; J1885; J2274; J2405; J2590; J2704; J2765